=== PATIENT | female | born 1935 | race Caucasian/White ===

== ENCOUNTER 2017-05-17 10:44 | Emergency (ER) | payer OTHER ==
--- NOTE | 2017-05-17 11:56 | EDPHY ---
H & P Stated Complaint: Back pain Source: Patient, Family - Personal History Current Tetanus/Diphtheria Vaccine: Yes - Medical/Surgical History Hx Asthma: No Hx Chronic Respiratory Disease: No Hx Diabetes: No Hx Cardiac Disease: No Hx Renal Disease: No Hx Cirrhosis: No Hx Alcoholism: No Hx HIV/AIDS: No Hx Splenectomy or Spleen Trauma: No - Social History Smoking Status: Never smoked Time Seen by Provider: 05/17/17 11:19 HPI/ROS: CHIEF COMPLAINT: Lower back pain hip pain HISTORY OF PRESENT ILLNESS: This is an 82-year-old female presenting to the emergency department via EMS. Patient states she has a history of Parkinson's disease which makes her somewhat unstable to walk, yesterday morning around 10 o 'clock she went to grab the railing missed a step fell back 1 step landing on her butt. Patient states she has somewhat been able to use her walker yesterday but is having increased pain today in her lower back and bilateral hips. Denies any LOC, denies hitting her head. REVIEW OF SYSTEMS: Constitutional: No fever, no chills. Decreased in ADLs Eyes: No discharge. No blurred vision ENT: No sore throat. Cardiovascular: No chest pain, no palpitations. Respiratory: No cough, no shortness of breath. Gastrointestinal: No abdominal pain, no vomiting. Genitourinary: No hematuria. Musculoskeletal: Lower back pain. Hip pain Skin: No rashes. Neurological: No headache. (Lacy Emerson) - Physical Exam Exam: General Appearance: Alert, no distress. HEENT: Normocephalic atraumatic Pupils equal and round no pallor or injection. Mucous membranes moist. Respiratory: There are no retractions, lungs are clear to auscultation. Cardiovascular: Regular rate and rhythm. Gastrointestinal: Abdomen is soft and nontender, no masses, bowel sounds normal. Neurological: No focal deficits. Answering questions appropriately Tremulous due to Parkinson's disease Skin: Warm and dry, no rashes. Musculoskeletal: Vertebral cervical-thoracic spine nontender on palpation. Lumbar spine sacral spine vertebral tenderness on palpation no crepitus noted. Left hip tenderness on palpation Extremities: symmetrical, full range of motion. No rotation of lower extremities. No obvious deformities or injuries Psychiatric: Patient is oriented X 3, there is no agitation. (Lacy Emerson) Constitutional: Initial Vital Signs Temperature (C) 36.8 C 05/17/17 11:04 Heart Rate 78 05/17/17 11:04 Respiratory Rate 18 05/17/17 11:04 Blood Pressure 124/68 H 05/17/17 11:04 O2 Sat (%) 88 L 05/17/17 11:04 O2 Delivery Mode Nasal Cannula O2 (L/minute) 2 Allergies/Adverse Reactions: Penicillins Allergy (Intermediate, Verified 09/23/12 09:32) Hives Home Medications: Medication Instructions Recorded Carbidopa/Levodopa 10/100Mg 0.5 tab PO TID 09/23/12 [Sinemet 10/100 MG (RX)] Cholecalciferol Vit D3 [Vitamin D3 5,000 units PO DAILY 05/18/17 (*)] Levothyroxine [Synthroid 25 mcg 25 mcg PO DAILY06 05/18/17 (*)] Medical Decision Making ED Course/Re-evaluation: Discussed ED plan of care: X-ray lumbar sacral pelvis 1300: X-rays negative for any acute fractures. Discussed results with patient and family at bedside. 1305: Discussed discharge instructions with patient, recommend using a walker due to her instability of the Parkinson's disease. Also spoke with case management to see if we can involve home health care for patient. Patient discharged home with family (Lacy Emerson) I did not see this patient while she was in the emergency department. However her care was discussed with the nurse practitioner while the patient was in the department. I agree with treatment plan and management (Carlos Sal) Differential Diagnosis: Other differential diagnosis considered but not limited to lumbar vertebral fracture, sacral fracture, hip dislocation (Lacy Emerson) Departure - Departure Disposition: Home, Routine, Self-Care Clinical Impression: Pain in lower back Condition: Good Instructions: Low Back Strain (ED), Musculoskeletal Pain (ED) Additional Instructions: 1. Decrease strenuous activity 2. Recommend using walker versus cane due to the instability from Parkinson's disease 3. Follow up with your primary care provider next week as needed 4. If at any point time you have increased pain, unable to walk, bowel or bladder incontinence return to the emergency department Home Health will contact you to schedule your home visits. Your first visit will be tomorrow, 05/18/17. If you do not hear from them today, call them tomorrow morning at You have been given a prescription for a walker. Home health will assist you with the process of obtaining a walker OR you may purchase a walker for about $ 100 at [facility] and [place] Referrals: Patient,NotPresent [Unknown] - As per Instructions [facility] [Clinic] - As per Instructions
[2017-05-17 12:50] VITALS: PULSE 82; RESP 16; TEMP 98.1; O2SAT 94
[2017-05-17] MEDS ORDERED: HYDROCODONE/APAP 5/325 TAB ONE (13:19)
[2017-05-17 14:32] VITALS: BP 118/78
== END 2017-05-17 14:32 | disposition home or self-care (01) ==
LOC: EDUNIT#
DX: S39.92XA Unspecified injury of lower back, initial encounter (principal); W10.9XXA Fall (on) (from) unspecified stairs and steps, initial encounter

== ENCOUNTER 2017-05-18 14:39 | Inpatient (IN) | payer OTHER ==
[2017-05-18] MEDS ORDERED: OXYCODONE/APAP 5/325 TAB ONE (14:54)
[2017-05-18] MEDS ORDERED: IBUPROFEN 600 MG TAB PO ONE ×2 (14:55→15:07)
[2017-05-18] MEDS ORDERED: LIDOCAINE 5% 1 EA PATCH TD ONE (14:55)
--- NOTE | 2017-05-18 15:02 | EDPHY ---
H & P Stated Complaint: Here yesterday, PT says pain not in control. Source: Patient, EMS, Old records - Personal History Current Tetanus/Diphtheria Vaccine: Yes Current Tetanus Diphtheria and Acellular Pertussis (TDAP): Yes - Medical/Surgical History Hx Asthma: No Hx Chronic Respiratory Disease: No Hx Diabetes: No Hx Cardiac Disease: No Hx Renal Disease: No Hx Cirrhosis: No Hx Alcoholism: No Hx HIV/AIDS: No Hx Splenectomy or Spleen Trauma: No Other PMH: parkinsons - Social History Smoking Status: Never smoked Time Seen by Provider: 05/18/17 14:41 HPI/ROS: CHIEF COMPLAINT: Generalized weakness HISTORY OF PRESENT ILLNESS: This is an 82-year-old female presenting to the emergency department via EMS. Patient was seen here yesterday in the emergency department staff for acute lower back/hip pain status post fall on to 05/16/17. Case management had set up home health evaluation and outpatient PT for today, physical therapy stated patient was unable to do physical therapy due to her increased pain and Parkinson's disease was told she should be coming in to the emergency department for pain control. Patient states she would like to be admitted for pain control and physical therapy. Patient denies any new injuries has been taking 1 Norco5/325 every 6 hours without resolved. Patient states she has been ambulatory at home with the assist of friends and cane REVIEW OF SYSTEMS: Constitutional: No fever, no chills. Decreased p.o. intake Eyes: No discharge. No blurred vision ENT: No sore throat. Cardiovascular: No chest pain, no palpitations. Respiratory: No cough, no shortness of breath. Gastrointestinal: No abdominal pain, no vomiting. Genitourinary: No hematuria. Musculoskeletal: Lower back pain. Skin: No rashes. Neurological: No headache. (Lacy Emerson) - Physical Exam Exam: General Appearance: Alert, no distress. HEENT: Pupils equal and round no pallor or injection. Mucous membranes moist. Respiratory: There are no retractions, lungs are clear to auscultation. Cardiovascular: Regular rate and rhythm. Gastrointestinal: Abdomen is soft and nontender, no masses, bowel sounds normal. Neurological: No facial droop AAO x3 Skin: Warm and dry, no rashes. Musculoskeletal: Neck is supple nontender. Extremities: symmetrical, full range of motion tremulous due to a Parkinson's Psychiatric: Patient is oriented X 3, there is no agitation. (Lacy Emerson) Constitutional: Initial Vital Signs Temperature (C) 37 C 05/18/17 14:45 Heart Rate 89 05/18/17 14:45 Respiratory Rate 18 05/18/17 14:45 Blood Pressure 109/76 05/18/17 14:45 O2 Sat (%) 91 L 05/18/17 14:45 O2 Delivery Mode Room Air Allergies/Adverse Reactions: Penicillins Allergy (Intermediate, Verified 09/23/12 09:32) Hives Home Medications: Medication Instructions Recorded Carbidopa/Levodopa 10/100Mg 0.5 tab PO TID 09/23/12 [Sinemet 10/100 MG (RX)] Cholecalciferol Vit D3 [Vitamin D3 5,000 units PO DAILY 05/18/17 (*)] Levothyroxine [Synthroid 25 mcg 25 mcg PO DAILY06 05/18/17 (*)] Medical Decision Making ED Course/Re-evaluation: Discussed patient with Meron MURDOCKwildlife management professor evaluate for possible skilled facility for rehab. Reviewed old medical records 1530: Spoke with Lu Aguilar with home health. She stated this afternoon went to evaluate patient for physical therapy patient was lying in bed needed 2 people assist to sit her up, then patient was complaining of increased pain there was no family support in the home patient does live with a roommate. They were concerned patient was not safe at home needs to be possibly admitted for pain control and physical therapy or admitted to SNF for rehab. 1640: Patient admitted to hospitalist Dr. Carmichael. Case management will also be involved to possibly get patient into a halfway facility for rehab ( Lacy Emerson) Differential Diagnosis: Other differential diagnosis considered but not limited to electrolyte imbalance , AMS, and UTI (Lacy Emerson) Other Provider: The patient was evaluated and managed by the Physician Head Trimmer/ Nurse Practitioner. I discussed the patient's presentation and course with the midlevel provider with them and agree with the evaluation. My co-signature indicates that I have reviewed this chart and I agree with the findings and plan of care as documented. I am the secondary supervising physician. (Caridad Llamas) - Data Points Laboratory Results: Laboratory Results 05/18/17 15:20 05/18/17 15:20 Medications Given: Discontinued Medications Ibuprofen (Motrin) 600 mg PO EDNOW ONE Stop: 05/18/17 15:08 Last Admin: 05/18/17 15:16 Dose: 600 mg Oxycodone/Acetaminophen (Percocet 5/325) 1 tab PO EDNOW ONE Stop: 05/18/17 15:08 Last Admin: 05/18/17 15:16 Dose: 1 tab Departure - Departure Disposition: [facility] Clinical Impression: Inadequate pain control, Generalized weakness Condition: Good
[2017-05-18] MEDS ORDERED: OXYCODONE/APAP 5/325 TAB PO ONE (15:07)
[2017-05-18] MEDS: LIDOCAINE 5% 1 EA PATCH TD SCH (15:16)
[2017-05-18 15:49] LABS: % IMMATURE GRANULYOCYTES 0.5 % (0.0-1.1); ABSOLUTE IMMATURE GRANULOCYTES 0.06 10^3/uL (0.00-0.10); ADD DIFF? NO; ADD MORPH? NO; ADD SCAN? NO; ATYPICAL LYMPHOCYTE FLAG 0 (0-99); FRAGMENT RBC FLAG 0 (0-99); HEMATOCRIT 41.3 % (38.0-47.0); HEMOGLOBIN 14.2 g/dL (12.6-16.3); LEFT SHIFT FLG 0 (0-99); LIPEMIA HEMOLYSIS FLAG 90 (0-99); MEAN CELL HEMOGLOBIN 30.9 pg (27.9-34.1); MEAN CELL HEMOGLOBIN CONCENTR. 34.4 g/dL (32.4-36.7); MEAN PLATELET VOLUME 10.8 fL (8.7-11.7); PLATELET CLUMPS FLAG 20 (0-99); PLATELET COUNT 179 10^3/uL (150-400); RED BLOOD CELL COUNT 4.59 10^6/uL (4.18-5.33); RED CELL DISTRIBUTION WIDTH 12.7 % (11.5-15.2)
[2017-05-18 15:56] LABS: ANION GAP 9 mEq/L (8-16); CALCIUM 9.1 mg/dL (8.5-10.4); CARBON DIOXIDE 24 mEq/l (22-31); CHLORIDE 103 mEq/L (97-110); CREATININE 0.7 mg/dL (0.6-1.0); GLOMERULAR FILTRATION RATE > 60; GLUCOSE 107 mg/dL (70-100); POTASSIUM 3.6 mEq/L (3.5-5.2); SODIUM 136 mEq/L (134-144)
[2017-05-18] MEDS ORDERED: ONDANSETRON DISINTEGRATING 4 MG TAB PO PRN (17:39)
[2017-05-18] MEDS ORDERED: ONDANSETRON 4 MG/2 ML VIAL IVP PRN (17:39)
[2017-05-18 17:54] LABS: COLOR YELLOW; LEUKOCYTE ESTERASE,URINE NEGATIVE (NEGATIVE); NITRITE,URINE NEGATIVE (NEGATIVE)
--- NOTE | 2017-05-18 18:11 | PDGENHP ---
History and Physical History and Physical: HISTORY AND PHYSICAL CC: Back pain after fall yesterday HISTORY: This patient came to the emergency room yesterday after she had fallen. She has chronic gait instability from Parkinson's and was using a walker at home though got up with out her walker yesterday and reached for railing and missed and fell backwards landing on her buttock. She had pain in her low back with no injury or symptoms to other body parts. She was seen here yesterday and had x-rays of the pelvis lumbar spine and coccyx and did not have any fractures. She had gotten up and walked with her walker and was discharged back to her house. However as she was seen by Physical therapy today it was clear that she was not really transferring and ambulating safely at least in part due to her ongoing pain from this fall. She therefore was transferred back to the emergency room for further evaluation. She has had no of recurrent falls no new pain no new injuries no other new symptoms of illness of any kind. Her Parkinson's disease symptoms are stable chronic tremor and gait instability as well as some chronic urinary frequency. ROS: A comprehensive 10 system review revealed no other significant findings PAST MEDICAL HISTORY: Parkinson's disease Hypothyroidism FAMILY MEDICAL HISTORY: She is not aware of any significant pertinent family medical history SOCIAL HISTORY: Lives in a private house with a friend No tobacco drug or alcohol use MEDICATIONS: The patients list has been reconciled by our clinical pharmacist in the EMR. I have reviewed the list and ordered appropriate medicines. PHYSICAL EXAMINATION: Vital Signs: Stable without fever Examination: General: alert, oriented, good mentation, relaxed; a typical parkinsonian tremor of both hands is present. Her speech is hypophonic which is chronic for her. She has somewhat diminished facial expression, normal speech/language, normal video effects editor, no focal weakness Skin: warm, dry, good color, no rash HEENT: normal Neck: no mass or jvd Resps: relaxed Lungs: clear breath sounds Heart: regular, no murmur Abdomen: soft, nondistended, nontender, +BS, no mass Upper Extremities: normal Lower Extremities: no edema, warm No Bleeding or bruising IV site: looks normal LABORATORY DATA: Review of yesterday's blood test laboratory data reveals no concerning abnormalities RADIOLOGY STUDIES: I reviewed x-rays of the lumbar spine sacrum coccyx and pelvis from yesterday. There are no notable fractures of concern. She has some degenerative spine disease ASSESSMENT: -ongoing lumbar and buttock pain after fall yesterday: No sign of bony injury or joint injury -chronic gait instability from Parkinson's disease is now made worse by the pain from yesterday's injury such that she is unsafe to be ambulatory without assistance at home PLANS: She will need to come into the hospital is to be safe until we can either get her pain and mobility improved for safe transfers and ambulation, or she will need to go to fdc facility for ongoing rehabilitation there I have reviewed the patient's case in detail with Lacy RINALDI of the ER I have reviewed the patient's past medical records as part of this assessment, including yesterday's ER records and x-ray images
[2017-05-18] MEDS: CARBIDOPA/LEVODOPA 10MG/100MG 1 TAB PO SCH (20:18)
[2017-05-18] MEDS: PATCH REMOVAL 1 EA PATCH TD SCH (20:19)
[2017-05-19] MEDS: IBUPROFEN 200 MG TAB PO PRN ×3 (02:39→14:23)
[2017-05-19] MEDS: ACETAMINOPHEN 325 MG TAB PO PRN (05:01)
[2017-05-19] MEDS: LEVOTHYROXINE 25 MCG TAB PO SCH (05:29)
[2017-05-19] MEDS: LIDOCAINE 5% 1 EA PATCH TD SCH (08:19)
[2017-05-19] MEDS: CHOLECALCIFEROL VIT D3 2,000 UNITS TAB/CAP PO SCH (08:22)
[2017-05-19] MEDS: CARBIDOPA/LEVODOPA 10MG/100MG 1 TAB PO SCH ×3 (08:22→22:09)
[2017-05-19] MEDS: ENOXAPARIN 40 MG/0.4 ML SYR SC SCH (08:28)
--- NOTE | 2017-05-19 14:15 | HOSPPROG ---
Hospitalist Progress Note Assessment/Plan: * Severe back pain s/p fall -L1 compression fracture on Xray - ? chronic -check MRI L-spine -severe pelvic pain - check CT pelvis * Parkinson's -continue Sinemet Subjective: Severe pain in lower back and whole pelvis Objective: Vital Signs Temp Pulse Resp BP Pulse Ox 36.6 C 79 16 133/73 H 90 L 05/19/17 08:00 05/19/17 08:00 05/19/17 08:00 05/19/17 08:00 05/19/17 08:00 05/18/17 05/19/17 05/20/17 05:59 05:59 05:59 Intake Total 200 Balance 200 old chart reviewed - Xrays of Lspine and pelvis done during previous admission negative for acute. L1 compression fracture that was suspected to be old Laboratory Tests 05/18/17 15:20 WBC 11.80 H Hct 41.3 Plt Count 179 Neut % (Auto) 82.2 H Lymph % (Auto) 10.8 L - Physical Exam Constitutional: no apparent distress, appears nourished, not in pain Cardiovascular: regular rate and rhythym, no murmur, rub, or gallop Respiratory: no respiratory distress, no rales or rhonchi, clear to auscultation Gastrointestinal: normoactive bowel sounds, soft, non-tender abdomen, no palpable masses Skin: no rashes or abrasions, no fluctuance, no induration Neurologic: AAOx3, sensation intact bilaterally Psychiatric: interacting appropriately, not anxious, not encephalopathic, thought process linear ICD10 Worksheet Patient Problems: Problems Problem Status Onset Generalized weakness Acute Inadequate pain control Acute
[2017-05-19] MEDS: oxyCODONE IR 5 MG TAB PO PRN ×2 (16:11→20:30)
[2017-05-19] MEDS: PATCH REMOVAL 1 EA PATCH TD SCH (22:10)
[2017-05-20] MEDS: oxyCODONE IR 5 MG TAB PO PRN ×3 (05:12→20:13)
[2017-05-20] MEDS: LEVOTHYROXINE 25 MCG TAB PO SCH (05:12)
[2017-05-20] MEDS: CHOLECALCIFEROL VIT D3 2,000 UNITS TAB/CAP PO SCH (08:21)
[2017-05-20] MEDS: CARBIDOPA/LEVODOPA 10MG/100MG 1 TAB PO SCH ×3 (08:23→22:54)
[2017-05-20] MEDS: LIDOCAINE 5% 1 EA PATCH TD SCH (08:24)
[2017-05-20] MEDS: ENOXAPARIN 40 MG/0.4 ML SYR SC SCH (08:25)
--- NOTE | 2017-05-20 13:59 | HOSPPROG ---
Hospitalist Progress Note Assessment/Plan: * Acute L1 compression fracture -retropulsion but no cord compromise -neurosurgery consulted - Dr. Nanny Camilla esquivel -pain control difficult - consider kyphoplasty/vertebroplasty * Parkinson's -continue Sinemet * Hypoxia - suspect due to narcotics Subjective: Pain is severe. Objective: Vital Signs Temp Pulse Resp BP Pulse Ox 36.6 C 79 14 116/67 96 05/20/17 08:00 05/20/17 08:00 05/20/17 08:00 05/20/17 08:00 05/20/17 08:00 05/19/17 05/20/17 05/21/17 05:59 05:59 05:59 Intake Total 200 300 Balance 200 300 recheck CBC,7 in am MRI L-spine - acute 50% L1 fracture with retropulsion but no cord compromise case d/w Neurosurgery Dr. Nanny Ethan esquivel and they will consult this afternoon. - Physical Exam Constitutional: no apparent distress, appears nourished, not in pain Cardiovascular: regular rate and rhythym, no murmur, rub, or gallop Respiratory: no respiratory distress, no rales or rhonchi, clear to auscultation Gastrointestinal: normoactive bowel sounds, soft, non-tender abdomen, no palpable masses Skin: no rashes or abrasions, no fluctuance, no induration Neurologic: AAOx3, sensation intact bilaterally, other (tremor is more significant than yesterday) Psychiatric: interacting appropriately, not anxious, not encephalopathic, thought process linear ICD10 Worksheet Patient Problems: Problems Problem Status Onset Generalized weakness Acute Inadequate pain control Acute
--- NOTE | 2017-05-20 16:36 | GCON ---
[f rep st] CONSULTATION HOSPITALIST MEDICINE CONSULT NOTE REASON FOR CONSULT: L1 compression fracture. HISTORY OF PRESENT ILLNESS: The patient is a very pleasant 82-year-old female with Parkinson's disease and hypothyroidism. Due to her Parkinson's, she does have some gait issues and was using a walker at home. She was reaching for the railing and missed her walker and fell backwards, landing on her buttocks. She was able to get back up on her own. She was seen by Physical Therapy on the day of admission, and it was evident that she was not transferring or ambulating safely partly due to her pain, so she was taken to the [facility] Emergency Room for evaluation. A plain film was done at that time demonstrating an L1 compression fracture, and she was admitted to the hospitalist service for pain management. She subsequently had an MRI of the lumbar spine demonstrating some retropulsion at L1, but no significant stenosis or compression. There is some subtle evidence of STIR signal in the L1, L2 and L3 vertebra. To me, she describes the back pain being in the upper buttock region, in her hips and wrapping around to the front of her pelvis. Sometimes she has pain up in the lower rib cage. She has no numbness, tingling or weakness in her legs. She has tried to get up and when she does so it hurts worse. Therefore, I was consulted for recommendations. PAST MEDICAL HISTORY: Per HPI. PAST SURGICAL HISTORY: Per HPI. ALLERGIES: To penicillins. MEDICATIONS: Tylenol, Sinemet, vitamin D, Lovenox, Motrin, Synthroid, Lidoderm patch, Zofran, oxycodone immediate release. FAMILY HISTORY: No history of spine fracture. Somewhat noncontributory in this traumatic setting. SOCIAL HISTORY: Lives in a private home with her friend. No tobacco, alcohol or drug abuse. REVIEW OF SYSTEMS: A 10-point review was performed and is negative, other than stated in the HPI. PHYSICAL EXAMINATION: VITALS: Temperature 36.6, blood pressure 116/67, heart rate 79, respiratory rate 14, saturating 96% on 2 L nasal cannula. GENERAL: The patient is resting comfortably in bed. NEUROPSYCHIATRIC: She opens her eyes to my voice command. She is conversant. She has a tremor consistent with her Parkinson's disease. She is nonfocal. She has normal cranial nerves. Normal strength volitionally in all muscle groups. She has normal sensory exam to light touch and pinprick. She has normal reflexes. She has no cerebellar signs. Gait is deferred, given her pain with ambulation. LABS: White cells 11.8, hemoglobin 14.2, platelet 179. She has a left shift with 82% neutrophils and absolute neutrophil count of 9.7, which is also elevated stated was 136, potassium 3.6, BUN creatinine 16.7, glucose 107 UA negative. IMAGING: I reviewed the patient's CT of the abdomen and pelvis from 2012, her lumbar films from admission and her MRI, and agree with L1 compression fracture with possible STIR signal indicating an acute fracture at L1, less likely at L2 or L3. IMPRESSION: The patient is an 82-year-old female with Parkinson's disease and gait difficulties due to this condition, who fell at home on her bottom and has since had pain in her low back, upper buttocks, hips and around to the front of her pelvis, and pain just below her rib cage as well, with imaging suggesting an acute L1 compression fracture. She is neurologically intact. PLAN: At this point in time, she is undergoing medical pain management, and we have asked for a Totz brace to help her with stability and pain control when she attempts to mobilize. We did discuss the utility of a kyphoplasty when basic pain measures are insufficient, but at this point in time, she would prefer to hold off on this for the time being. Thank you for this consult. We are following along. /[id number]/MODL MTDD
[2017-05-20] MEDS: ACETAMINOPHEN 325 MG TAB PO PRN (20:13)
[2017-05-20] MEDS: PATCH REMOVAL 1 EA PATCH TD SCH (20:17)
[2017-05-21] MEDS: oxyCODONE IR 5 MG TAB PO PRN ×4 (02:25→19:49)
[2017-05-21] MEDS: ACETAMINOPHEN 325 MG TAB PO PRN ×3 (03:02→16:36)
[2017-05-21] MEDS: LEVOTHYROXINE 25 MCG TAB PO SCH (05:09)
[2017-05-21 05:11] LABS: % IMMATURE GRANULYOCYTES 0.4 % (0.0-1.1); ABSOLUTE IMMATURE GRANULOCYTES 0.03 10^3/uL (0.00-0.10); ADD DIFF? NO; ADD MORPH? NO; ADD SCAN? NO; ATYPICAL LYMPHOCYTE FLAG 10 (0-99); FRAGMENT RBC FLAG 0 (0-99); HEMATOCRIT 39.5 % (38.0-47.0); HEMOGLOBIN 13.6 g/dL (12.6-16.3); LEFT SHIFT FLG 0 (0-99); LIPEMIA HEMOLYSIS FLAG 90 (0-99); MEAN CELL HEMOGLOBIN 30.4 pg (27.9-34.1); MEAN CELL HEMOGLOBIN CONCENTR. 34.4 g/dL (32.4-36.7); MEAN CELL VOLUME 88.4 fL (81.5-99.8); MEAN PLATELET VOLUME 10.2 fL (8.7-11.7); PLATELET CLUMPS FLAG 0 (0-99); PLATELET COUNT 181 10^3/uL (150-400); RED BLOOD CELL COUNT 4.47 10^6/uL (4.18-5.33); RED CELL DISTRIBUTION WIDTH 12.3 % (11.5-15.2)
[2017-05-21 05:25] LABS: ANION GAP 7 mEq/L (8-16); CALCIUM 9.4 mg/dL (8.5-10.4); CARBON DIOXIDE 26 mEq/l (22-31); CHLORIDE 104 mEq/L (97-110); CREATININE 0.8 mg/dL (0.6-1.0); GLOMERULAR FILTRATION RATE > 60; GLUCOSE 97 mg/dL (70-100); POTASSIUM 3.7 mEq/L (3.5-5.2); SODIUM 137 mEq/L (134-144)
--- NOTE | 2017-05-21 08:01 | NEUSURGPN ---
Assessment/Plan: 82 y/o female with L1 compression fx. -Santiago brace pending -Optimize pain management -Will obtain standing xrays once brace arrives. -Please notify NS with any change in neuro/motor exam Subjective: back pain, denies any leg pain, numbness, tingling Objective: Baseline tremor. 5/5 and equal in BUE and BLE. - Physician Discussed Patient with : Jennifer Neurosurgery Physical Exam - Vitals, I&O, Labs I and O 05/20/17 05/21/17 05/22/17 05:59 05:59 05:59 Intake Total 300 550 Output Total 125 Balance 300 425 Intake: Oral (ml) 300 550 Output: Urine (ml) 125 Bedside Commode 125 Other: Intake Quantity Yes Sufficient Number of Voids Bedside Commode 2 2 Vital Signs Temp Pulse Resp BP Pulse Ox 36.7 C 85 14 142/82 H 90 L 05/20/17 22:53 05/20/17 22:53 05/20/17 22:53 05/20/17 22:53 05/20/17 22:53 Laboratory Results 05/21/17 04:55 05/21/17 04:55 ICD10 Worksheet Patient Problems: Problems Problem Status Onset Generalized weakness Acute Inadequate pain control Acute
[2017-05-21] MEDS: CHOLECALCIFEROL VIT D3 2,000 UNITS TAB/CAP PO SCH (08:39)
[2017-05-21] MEDS: LIDOCAINE 5% 1 EA PATCH TD SCH (08:40)
[2017-05-21] MEDS: CARBIDOPA/LEVODOPA 10MG/100MG 1 TAB PO SCH ×3 (08:40→22:11)
[2017-05-21] MEDS: ENOXAPARIN 40 MG/0.4 ML SYR SC SCH (08:45)
--- NOTE | 2017-05-21 17:14 | HOSPPROG ---
Hospitalist Progress Note Assessment/Plan: * Acute L1 compression fracture -retropulsion but no cord compromise -Jewitt brace -pain control difficult - patient declines kyphoplasty/vertebroplasty * Parkinson's -continue Sinemet Subjective: Pain control still difficult Objective: Vital Signs Temp Pulse Resp BP Pulse Ox 36.7 C 75 18 145/87 H 94 05/21/17 16:00 05/21/17 16:00 05/21/17 16:00 05/21/17 16:00 05/21/17 16:00 Laboratory Results 05/21/17 04:55 05/21/17 04:55 05/20/17 05/21/17 05/22/17 05:59 05:59 05:59 Intake Total 300 550 Output Total 125 Balance 300 425 - Physical Exam Constitutional: no apparent distress, appears nourished, not in pain Cardiovascular: regular rate and rhythym, no murmur, rub, or gallop Respiratory: no respiratory distress, no rales or rhonchi, clear to auscultation Gastrointestinal: normoactive bowel sounds, soft, non-tender abdomen, no palpable masses Skin: no rashes or abrasions, no fluctuance, no induration Neurologic: AAOx3, sensation intact bilaterally Psychiatric: interacting appropriately, not anxious, not encephalopathic, thought process linear ICD10 Worksheet Patient Problems: Problems Problem Status Onset Generalized weakness Acute Inadequate pain control Acute
[2017-05-21] MEDS: CALCITONIN 200 UNITS/SPRAY INH NS SCH (18:38)
[2017-05-22] MEDS: oxyCODONE IR 5 MG TAB PO PRN ×4 (01:17→20:24)
[2017-05-22] MEDS: ACETAMINOPHEN 325 MG TAB PO PRN ×3 (01:17→20:43)
[2017-05-22] MEDS: LEVOTHYROXINE 25 MCG TAB PO SCH (06:18)
--- NOTE | 2017-05-22 08:57 | NEUSURGPN ---
Assessment/Plan: 82 y/o female with L1 compression fx. -Santiago brace in room- has been up in chair but not walking with brace yet. -Optimize pain management -Will obtain standing xrays in brace when able -Discussed option of kyphoplasty again with patient if she is still not ambulatory due to pain in a few days. Patient would like to wait and see still how she does. Feels pain is slightly better today -Please notify NS with any change in neuro/motor exam or if patient decides she would like kypho -Discussed with Dr. Rodriguez Subjective: back pain still severe with movement but slightly better than yesterday she states. She denies any leg pain, numbness, tingling. has baseline Parkinson's and neuropathy but nothing new. Objective: NAD, VSS Baseline tremor from Parkinson's 03/30 and equal in BUE and BLE. Sensation intact to lt touch - Physician Discussed Patient with Dr.: Rodriguez Neurosurgery Physical Exam - Vitals, I&O, Labs I and O 05/21/17 05/22/17 05/23/17 05:59 05:59 05:59 Intake Total 550 450 Output Total 125 Balance 425 450 Intake: Oral (ml) 550 450 Output: Urine (ml) 125 Bedside Commode 125 Other: Intake Quantity Yes Sufficient Number of Voids Bedside Commode 2 3 Vital Signs Temp Pulse Resp BP Pulse Ox 36.6 C 80 16 101/61 93 05/22/17 07:34 05/22/17 07:34 05/22/17 07:34 05/22/17 07:34 05/22/17 07:34 Laboratory Results 05/21/17 04:55 05/21/17 04:55 ICD10 Worksheet Patient Problems: Problems Problem Status Onset Generalized weakness Acute Inadequate pain control Acute
[2017-05-22] MEDS: CALCITONIN 200 UNITS/SPRAY INH NS SCH (10:34)
[2017-05-22] MEDS: CARBIDOPA/LEVODOPA 10MG/100MG 1 TAB PO SCH ×3 (10:34→20:43)
[2017-05-22] MEDS: CHOLECALCIFEROL VIT D3 2,000 UNITS TAB/CAP PO SCH (10:35)
[2017-05-22] MEDS: ENOXAPARIN 40 MG/0.4 ML SYR SC SCH (10:35)
[2017-05-22] MEDS: LIDOCAINE 5% 1 EA PATCH TD SCH (14:13)
--- NOTE | 2017-05-22 15:41 | HOSPPROG ---
Hospitalist Progress Note Assessment/Plan: * Acute L1 compression fracture -retropulsion but no cord compromise -[place] brace -recheck Xray up in brace when she is able -better pain control and mobilization today -she continues to insist no kyphoplasty * Parkinson's -continue Sinemet Subjective: Has been unable to perform f/u xray, although pain control is better today. Got up with therapy Objective: Vital Signs Temp Pulse Resp BP Pulse Ox 36.4 C 91 16 130/71 H 90 L 05/22/17 15:16 05/22/17 15:16 05/22/17 15:16 05/22/17 15:16 05/22/17 15:16 Laboratory Results 05/21/17 04:55 05/21/17 04:55 05/21/17 05/22/17 05/23/17 05:59 05:59 05:59 Intake Total 550 450 Output Total 125 Balance 425 450 - Physical Exam Constitutional: no apparent distress, appears nourished, not in pain Cardiovascular: regular rate and rhythym, no murmur, rub, or gallop Respiratory: no respiratory distress, no rales or rhonchi, clear to auscultation Skin: no rashes or abrasions, no fluctuance, no induration Neurologic: AAOx3, sensation intact bilaterally Psychiatric: interacting appropriately, not anxious, not encephalopathic, thought process linear ICD10 Worksheet Patient Problems: Problems Problem Status Onset Generalized weakness Acute Inadequate pain control Acute
[2017-05-23] MEDS: oxyCODONE IR 5 MG TAB PO PRN ×4 (00:38→20:08)
[2017-05-23] MEDS: PATCH REMOVAL 1 EA PATCH TD SCH ×2 (01:07→20:15)
[2017-05-23] MEDS: LEVOTHYROXINE 25 MCG TAB PO SCH (04:39)
[2017-05-23] MEDS: ACETAMINOPHEN 325 MG TAB PO PRN (05:52)
--- NOTE | 2017-05-23 07:49 | NEUSURGPN ---
Assessment/Plan: Assessment: 82 y/o female with L1 compression fx. Plan: -[place] brace in room- has been up in chair but not walking with brace yet. -Optimize pain management -Will obtain standing xrays in brace when able -Pt states that she does not want surgery and believes she is turning the corner and getting better and "I need one more day" -Discussed option of kyphoplasty again with patient if she is still not ambulatory due to pain in a few days. Patient would like to wait and see still how she does. Feels pain is slightly better day to day -Please notify NS with any change in neuro/motor exam or if patient decides she would like kypho -Discussed with Dr. Rodriguez Subjective: Awake and alert. NAD. Eating/drinking and voiding. No f/c/n/v/d. Objective: NAD, VSS Baseline tremor from Parkinson's 03/30 and equal in BUE and BLE. Sensation intact to lt touch Neuro Check Frequency: per routine - Physician Discussed Patient with : Jennifer Neurosurgery Physical Exam - Vitals, I&O, Labs I and O 05/22/17 05/23/17 05/24/17 05:59 05:59 05:59 Intake Total 450 250 Balance 450 250 Intake: Oral (ml) 450 250 Other: Intake Quantity Yes Yes Sufficient Number of Voids Bedside Commode 3 2 Vital Signs Temp Pulse Resp BP Pulse Ox 36.6 C 84 16 116/60 94 05/23/17 07:35 05/23/17 07:35 05/23/17 07:35 05/23/17 07:35 05/23/17 07:35 Laboratory Results 05/21/17 04:55 05/21/17 04:55 ICD10 Worksheet Patient Problems: Problems Problem Status Onset Generalized weakness Acute Inadequate pain control Acute
[2017-05-23] MEDS: CHOLECALCIFEROL VIT D3 2,000 UNITS TAB/CAP PO SCH (08:32)
[2017-05-23] MEDS: CARBIDOPA/LEVODOPA 10MG/100MG 1 TAB PO SCH ×3 (08:33→22:16)
[2017-05-23] MEDS: LIDOCAINE 5% 1 EA PATCH TD SCH (08:34)
[2017-05-23] MEDS: ENOXAPARIN 40 MG/0.4 ML SYR SC SCH (08:34)
[2017-05-23] MEDS: CALCITONIN 200 UNITS/SPRAY INH NS SCH (08:34)
[2017-05-23] MEDS: IBUPROFEN 200 MG TAB PO PRN (08:53)
--- NOTE | 2017-05-23 15:33 | HOSPPROG ---
Hospitalist Progress Note Assessment/Plan: * Acute L1 compression fracture -retropulsion but no cord compromise -Abdiaziz brace -check follow-up lumbar Xray in brace -still with poor pain control -d/w Rosaliomarkus Ace - patient now agreeable to kyphoplasty * Parkinson's -continue Sinemet Subjective: pain 07/05. narcs make her too sedated Objective: Vital Signs Temp Pulse Resp BP Pulse Ox 36.7 C 84 16 100/59 L 95 05/23/17 15:12 05/23/17 15:12 05/23/17 15:12 05/23/17 15:12 05/23/17 15:12 Laboratory Results 05/21/17 04:55 05/21/17 04:55 05/22/17 05/23/17 05/24/17 05:59 05:59 05:59 Intake Total 450 250 Balance 450 250 ICD10 Worksheet Patient Problems: Problems Problem Status Onset Generalized weakness Acute Inadequate pain control Acute
[2017-05-24] MEDS: oxyCODONE IR 5 MG TAB PO PRN (00:08)
[2017-05-24] MEDS: LEVOTHYROXINE 25 MCG TAB PO SCH (04:59)
--- NOTE | 2017-05-24 07:45 | NEUSURGPN ---
Assessment/Plan: Assessment: 82 y/o female with L1 compression fx. Plan: -[place] brace in room- has been up in chair but not walking with brace yet- didnt tolerate so scheduled with IR today for a kyphoplasty of L1 -NPO -pt is in significant pain and is NPO so will start an IV and order MS for pain control -Optimize pain management -Pt states that she does want some relief with a kyphoplasty-procedure discussed in detail -call with any questions or concerns -pt understands and agrees -Please notify NS with any change in neuro/motor exam -Discussed with Dr. Rodriguez Subjective: Pt with continued back pain. No reyes/neck/chest/abd or gu complaints. No f/c/n/v /d. Objective: NAD, VSS Baseline tremor from Parkinson's 03/30 and equal in BUE and BLE-global poor effort due to pain in back Sensation intact to lt touch Neuro Check Frequency: per routine Urinary Catheter in Place: No - Physician Discussed Patient with Dr.: Rodriguez Neurosurgery Physical Exam - Vitals, I&O, Labs I and O 05/23/17 05/24/17 05/25/17 05:59 05:59 05:59 Intake Total 250 250 Output Total 100 Balance 250 150 Intake: Oral (ml) 250 250 Output: Urine (ml) 100 Bedside Commode 100 Other: Intake Quantity Yes Sufficient Number of Voids Bedside Commode 2 1 Vital Signs Temp Pulse Resp BP Pulse Ox 36.7 C 85 16 113/71 93 05/24/17 07:14 05/24/17 07:14 05/24/17 07:14 05/24/17 07:14 05/24/17 07:14 Laboratory Results 05/21/17 04:55 05/21/17 04:55 ICD10 Worksheet Patient Problems: Problems Problem Status Onset Generalized weakness Acute Inadequate pain control Acute
[2017-05-24] MEDS: CARBIDOPA/LEVODOPA 10MG/100MG 1 TAB PO SCH ×3 (07:56→22:13)
[2017-05-24] MEDS: CHOLECALCIFEROL VIT D3 2,000 UNITS TAB/CAP PO SCH (07:57)
[2017-05-24] MEDS: LIDOCAINE 5% 1 EA PATCH TD SCH (08:22)
[2017-05-24] MEDS: CALCITONIN 200 UNITS/SPRAY INH NS SCH (10:38)
[2017-05-24 11:40] LABS: HEMATOCRIT 41.2 % (38.0-47.0); HEMOGLOBIN 14.3 g/dL (12.6-16.3); MEAN CELL HEMOGLOBIN CONCENTR. 34.7 g/dL (32.4-36.7); MEAN CELL VOLUME 89.4 fL (81.5-99.8); RED BLOOD CELL COUNT 4.61 10^6/uL (4.18-5.33); RED CELL DISTRIBUTION WIDTH 12.5 % (11.5-15.2)
[2017-05-24 11:50] LABS: INR 1.2 (0.83-1.16); PROTIME(PATIENT) 15.2 SEC (12.0-15.0)
[2017-05-24 11:51] LABS: APTT 26.9 SEC (23.0-38.0)
[2017-05-24 12:15] LABS: ANION GAP 9 mEq/L (8-16); CALCIUM 9.4 mg/dL (8.5-10.4); CARBON DIOXIDE 26 mEq/l (22-31); CHLORIDE 102 mEq/L (97-110); CREATININE 0.8 mg/dL (0.6-1.0); GLOMERULAR FILTRATION RATE > 60; GLUCOSE 92 mg/dL (70-100); POTASSIUM 4.4 mEq/L (3.5-5.2); SODIUM 137 mEq/L (134-144)
[2017-05-24] MEDS ORDERED: NS 1,000 ML IV ONE (16:00)
[2017-05-24] MEDS ORDERED: DEXAMETHASONE 10 MG/ML VIAL IVP ONE (16:00)
[2017-05-24] MEDS ORDERED: CLINDAMYCIN 900 MG/DEXTROSE 50 ML IV ONE (16:00)
[2017-05-24] MEDS ORDERED: PROPOFOL 200 MG/20 ML VIAL ONE (16:28)
[2017-05-24] MEDS ORDERED: REMIFENTANIL HCL 1 MG VIAL ONE (16:30)
--- NOTE | 2017-05-24 16:54 | HOSPPROG ---
Hospitalist Progress Note Assessment/Plan: * Acute L1 compression fracture -retropulsion but no cord compromise -[place] brace -very poor pain control - now agreeable to kyphoplasty -to IR today * Parkinson's -continue Sinemet Subjective: Pain very severe - immediately comes back with a vengence as soon as narcs wear off Objective: Vital Signs Temp Pulse Resp BP Pulse Ox 36.7 C 85 16 113/71 93 05/24/17 07:14 05/24/17 07:14 05/24/17 07:14 05/24/17 07:14 05/24/17 07:14 Laboratory Results 05/24/17 11:30 05/24/17 11:30 05/23/17 05/24/17 05/25/17 05:59 05:59 05:59 Intake Total 250 250 Output Total 100 Balance 250 150 PT 15.2 SEC (12.0-15.0) H 05/24/17 11:30 INR 1.20 (0.83-1.16) H 05/24/17 11:30 IV morphine required for pain control - Physical Exam Constitutional: no apparent distress, appears nourished, not in pain Cardiovascular: regular rate and rhythym, no murmur, rub, or gallop Respiratory: no respiratory distress, no rales or rhonchi, clear to auscultation Gastrointestinal: normoactive bowel sounds, soft, non-tender abdomen, no palpable masses Skin: no rashes or abrasions, no fluctuance, no induration Neurologic: AAOx3, sensation intact bilaterally Psychiatric: interacting appropriately, not anxious, not encephalopathic, thought process linear ICD10 Worksheet Patient Problems: Problems Problem Status Onset Generalized weakness Acute Inadequate pain control Acute
[2017-05-24] MEDS ORDERED: DEXAMETHASONE 4 MG/ML VIAL ONE (17:09)
[2017-05-24] MEDS ORDERED: ONDANSETRON 4 MG/2 ML VIAL ONE (17:26)
[2017-05-24] MEDS ORDERED: IOPAMIDOL (ISOVUE-300) 100 ML BTL ONE (17:27)
[2017-05-24] MEDS ORDERED: BUPIVACAINE 0.5% 30 ML SDV ONE (17:27)
--- NOTE | 2017-05-24 18:04 | POSTOPPROG ---
Post Op Note Date of Operation: 05/24/17 Surgeon: Rosetta Reynaga Anesthesiologist: Dr. Conley Anesthesia: GET(General Endotracheal) Pre-op Diagnosis: L1 fx Post-op Diagnosis: same Indication: severe pain Procedure: L1 kyphoplasty Findings: see report Inf/Abcess present in the surg proc area at time of surgery?: No Depth: Superfical (Skin SQ) EBL: Minimal Complications: None
[2017-05-24] MEDS: PATCH REMOVAL 1 EA PATCH TD SCH (22:12)
--- NOTE | 2017-05-24 23:05 | POSTANESTH ---
Post Anesthetic Evaluation Cardiovascular Status: Normal, Stable Respiratory Status: Normal, Stable Level of Consciousness/Mental Status: Can Participate in Eval Pain Control: Adequate, Prn Tx Ordered Nausea/Vomiting Control: Adequate, Prn Tx Ordered Complications Possibly Related to Anesthesia: None Noted
[2017-05-25] MEDS: LEVOTHYROXINE 25 MCG TAB PO SCH (05:35)
--- NOTE | 2017-05-25 09:49 | NEUSURGPN ---
Assessment/Plan: Assessment: 82 y/o female with L1 compression fx s/p vertebroplasty on 05/24 Plan: -pain much improved following vertebroplasty at L1 yesterday with IR -does not need to wear the brace -PT/OT -pain control -stable for discharge from our standpoint for discharge. will sign off and follow peripherally Subjective: Back pain much improved. No LE symptoms. Objective: Awake. alert. Speech fluent Facial expression symmetrical R>L UE tremor LE strength at 5/5 Sensation intact - Physician Discussed Patient with DrLesly: Jennifer Neurosurgery Physical Exam - Vitals, I&O, Labs I and O 05/24/17 05/25/17 05/26/17 05:59 05:59 05:59 Intake Total 250 550 Output Total 100 600 Balance 150 -50 Intake: Oral (ml) 250 250 IV Intake (ml) 300 Output: Urine (ml) 100 600 Bedside Commode 100 600 Other: Number of Voids Bedpan 1 Bedside Commode 1 1 Vital Signs Temp Pulse Resp BP Pulse Ox 36.7 C 102 H 13 105/67 90 L 05/25/17 07:41 05/25/17 07:41 05/25/17 07:41 05/25/17 07:41 05/25/17 07:41 Laboratory Results 05/24/17 11:30 05/24/17 11:30 ICD10 Worksheet Patient Problems: Problems Problem Status Onset Generalized weakness Acute Inadequate pain control Acute
[2017-05-25] MEDS: CARBIDOPA/LEVODOPA 10MG/100MG 1 TAB PO SCH ×3 (10:33→21:59)
[2017-05-25] MEDS: CHOLECALCIFEROL VIT D3 2,000 UNITS TAB/CAP PO SCH (10:33)
[2017-05-25] MEDS: CALCITONIN 200 UNITS/SPRAY INH NS SCH (10:34)
[2017-05-25] MEDS: oxyCODONE IR 5 MG TAB PO PRN ×2 (10:34→22:29)
[2017-05-25] MEDS: LIDOCAINE 5% 1 EA PATCH TD SCH ×2 (10:34→11:34)
--- NOTE | 2017-05-25 14:58 | HOSPPROG ---
Hospitalist Progress Note Assessment/Plan: # L1 compression fracture s/p kypho - overall pain improved # parkinson's - sinemet Subjective: pain better post kyphoplasty; new pain on the L side of her back Objective: Vital Signs Temp Pulse Resp BP Pulse Ox 36.9 C 90 15 119/72 90 L 05/25/17 11:39 05/25/17 11:39 05/25/17 11:39 05/25/17 11:39 05/25/17 11:39 Laboratory Results 05/24/17 11:30 05/24/17 11:30 05/24/17 05/25/17 05/26/17 05:59 05:59 05:59 Intake Total 250 550 Output Total 100 600 Balance 150 -50 PT 15.2 SEC (12.0-15.0) H 05/24/17 11:30 INR 1.20 (0.83-1.16) H 05/24/17 11:30 chart reviewed imaging reviewed - Physical Exam Constitutional: no apparent distress, appears nourished, other (L hand tremor) Cardiovascular: regular rate and rhythym, no murmur, rub, or gallop Respiratory: no respiratory distress, no rales or rhonchi, clear to auscultation Gastrointestinal: normoactive bowel sounds, soft, non-tender abdomen, no palpable masses ICD10 Worksheet Patient Problems: Problems Problem Status Onset Inadequate pain control Acute Generalized weakness Acute
[2017-05-25] MEDS: PATCH REMOVAL 1 EA PATCH TD SCH (22:01)
[2017-05-26] MEDS: ACETAMINOPHEN 325 MG TAB PO PRN (03:54)
[2017-05-26] MEDS: IBUPROFEN 200 MG TAB PO PRN (04:56)
[2017-05-26] MEDS: LEVOTHYROXINE 25 MCG TAB PO SCH (04:56)
[2017-05-26] MEDS: CARBIDOPA/LEVODOPA 10MG/100MG 1 TAB PO SCH ×3 (08:47→21:28)
[2017-05-26] MEDS: CHOLECALCIFEROL VIT D3 2,000 UNITS TAB/CAP PO SCH (10:02)
[2017-05-26] MEDS: CALCITONIN 200 UNITS/SPRAY INH NS SCH (10:04)
[2017-05-26] MEDS: LIDOCAINE 5% 1 EA PATCH TD SCH ×2 (10:09→11:27)
--- NOTE | 2017-05-26 13:47 | SOAPPROG ---
[facility] Progress Note Assessment/Plan: Assessment: 1. Good pain relief from L1 kyphoplasty. 2. Possible osteoporosis. 3. Last DEXA was over three years ago, showing low bone density, just shy of the threshold of diagnosis of osteoporosis. Plan: Recommend DEXA bone mineral densitometry. 05/26/17 13:27 Subjective: Patient had immediate excellent relief of back pain after kyphoplasty. Feels weak. Rehab is planned. Objective: Last DEXA was over three years ago. Vital Signs Temp Pulse Resp BP Pulse Ox 36.7 C 85 16 98/55 L 90 L 05/26/17 11:05 05/26/17 11:05 05/26/17 11:05 05/26/17 11:05 05/26/17 11:05 Laboratory Results 05/24/17 11:30 05/24/17 11:30 05/25/17 05/26/17 05/27/17 05:59 05:59 05:59 Intake Total 550 450 Output Total 600 Balance -50 450 PT 15.2 SEC (12.0-15.0) H 05/24/17 11:30 INR 1.20 (0.83-1.16) H 05/24/17 11:30 ICD10 Worksheet Patient Problems: Problems Problem Status Onset Generalized weakness Acute Inadequate pain control Acute
--- NOTE | 2017-05-26 15:17 | HOSPPROG ---
Hospitalist Progress Note Assessment/Plan: # L1 compression fracture s/p kypho - pain improved # osteopenia/osteoporosis - outpt DEXA # parkinson's - sinemet Subjective: pain slightly worse today from yesterday Objective: Vital Signs Temp Pulse Resp BP Pulse Ox 36.7 C 85 16 98/55 L 90 L 05/26/17 11:05 05/26/17 11:05 05/26/17 11:05 05/26/17 11:05 05/26/17 11:05 Laboratory Results 05/24/17 11:30 05/24/17 11:30 05/25/17 05/26/17 05/27/17 05:59 05:59 05:59 Intake Total 550 450 Output Total 600 Balance -50 450 PT 15.2 SEC (12.0-15.0) H 05/24/17 11:30 INR 1.20 (0.83-1.16) H 05/24/17 11:30 - Physical Exam Constitutional: no apparent distress, appears nourished, other (L hand tremor) Cardiovascular: regular rate and rhythym, no murmur, rub, or gallop Respiratory: no respiratory distress, no rales or rhonchi, clear to auscultation Gastrointestinal: normoactive bowel sounds, soft, non-tender abdomen, no palpable masses ICD10 Worksheet Patient Problems: Problems Problem Status Onset Inadequate pain control Acute Generalized weakness Acute
[2017-05-26] MEDS: oxyCODONE IR 5 MG TAB PO PRN ×3 (15:59→23:58)
[2017-05-26] MEDS: PATCH REMOVAL 1 EA PATCH TD SCH (21:30)
[2017-05-27] MEDS: oxyCODONE IR 5 MG TAB PO PRN (04:04)
[2017-05-27] MEDS: LEVOTHYROXINE 25 MCG TAB PO SCH (05:20)
[2017-05-27] MEDS: CHOLECALCIFEROL VIT D3 2,000 UNITS TAB/CAP PO SCH (08:54)
[2017-05-27] MEDS: CALCITONIN 200 UNITS/SPRAY INH NS SCH (08:55)
[2017-05-27] MEDS: CARBIDOPA/LEVODOPA 10MG/100MG 1 TAB PO SCH ×3 (08:55→20:50)
[2017-05-27] MEDS: LIDOCAINE 5% 1 EA PATCH TD SCH (08:56)
--- NOTE | 2017-05-27 10:17 | HOSPPROG ---
Hospitalist Progress Note Assessment/Plan: # worsening weakness - will check labs, cont aggressive PT/OT # L1 compression fracture s/p kypho - pain improved # osteopenia/osteoporosis - outpt DEXA # parkinson's - sinemet Subjective: feels weaker today, no F/C/N/V/D Objective: Vital Signs Temp Pulse Resp BP Pulse Ox 36.4 C 81 16 129/75 H 92 05/27/17 08:00 05/27/17 08:00 05/27/17 08:00 05/27/17 08:00 05/27/17 08:00 Laboratory Results 05/24/17 11:30 05/24/17 11:30 05/26/17 05/27/17 05/28/17 05:59 05:59 05:59 Intake Total 450 600 Output Total 1100 Balance 450 -500 PT 15.2 SEC (12.0-15.0) H 05/24/17 11:30 INR 1.20 (0.83-1.16) H 05/24/17 11:30 - Physical Exam Constitutional: no apparent distress, appears nourished, other (L sided tremor) Cardiovascular: regular rate and rhythym, no murmur, rub, or gallop Respiratory: no respiratory distress, no rales or rhonchi, clear to auscultation Gastrointestinal: normoactive bowel sounds, soft, non-tender abdomen, no palpable masses ICD10 Worksheet Patient Problems: Problems Problem Status Onset Inadequate pain control Acute Generalized weakness Acute
[2017-05-27 10:46] LABS: % IMMATURE GRANULYOCYTES 0.4 % (0.0-1.1); ABSOLUTE IMMATURE GRANULOCYTES 0.04 10^3/uL (0.00-0.10); ADD DIFF? NO; ADD MORPH? NO; ADD SCAN? NO; ATYPICAL LYMPHOCYTE FLAG 0 (0-99); FRAGMENT RBC FLAG 0 (0-99); HEMOGLOBIN 15.2 g/dL (12.6-16.3); LEFT SHIFT FLG 0 (0-99); LIPEMIA HEMOLYSIS FLAG 90 (0-99); MEAN CELL HEMOGLOBIN 30.8 pg (27.9-34.1); MEAN CELL HEMOGLOBIN CONCENTR. 34.5 g/dL (32.4-36.7); MEAN CELL VOLUME 89.1 fL (81.5-99.8); MEAN PLATELET VOLUME 10.3 fL (8.7-11.7); PLATELET CLUMPS FLAG 0 (0-99); PLATELET COUNT 243 10^3/uL (150-400); RED BLOOD CELL COUNT 4.94 10^6/uL (4.18-5.33); RED CELL DISTRIBUTION WIDTH 12.6 % (11.5-15.2)
[2017-05-27] MEDS: IBUPROFEN 200 MG TAB PO PRN ×2 (10:56→20:49)
[2017-05-27 11:08] LABS: ALANINE AMINOTRANSFERASE 40 IU/L (9-52); ALBUMIN 4.3 g/dL (3.5-5.0); ALKALINE PHOSPHATASE 79 IU/L (38-126); ANION GAP 11 mEq/L (8-16); ASPARTATE AMINOTRANSFERASE 22 IU/L (14-46); BILIRUBIN,TOTAL 1.1 mg/dL (0.1-1.4); CALCIUM 9.9 mg/dL (8.5-10.4); CARBON DIOXIDE 24 mEq/l (22-31); CHLORIDE 104 mEq/L (97-110); CREATININE 0.8 mg/dL (0.6-1.0); GLOMERULAR FILTRATION RATE > 60; GLUCOSE 110 mg/dL (70-100); POTASSIUM 4.5 mEq/L (3.5-5.2); SODIUM 139 mEq/L (134-144); TOTAL PROTEIN 7.2 g/dL (6.3-8.2)
[2017-05-27] MEDS ORDERED: MAGNESIUM HYDROXIDE 30 ML UDCUP PO PRN (16:13)
[2017-05-27] MEDS ORDERED: LACTULOSE 20 GM/30 ML UDCUP PO PRN (16:13)
[2017-05-27] MEDS ORDERED: BISACODYL 10 MG SUPP PR PRN (16:13)
[2017-05-27] MEDS ORDERED: POLYETHYLENE GLYCOL 3350 17 GM PKT PO PRN (16:13)
[2017-05-27] MEDS: SENNOSIDES/DOCUSATE SODIUM TAB PO SCH (20:49)
[2017-05-27] MEDS: PATCH REMOVAL 1 EA PATCH TD SCH (22:51)
[2017-05-28] MEDS: IBUPROFEN 200 MG TAB PO PRN (04:17)
[2017-05-28] MEDS: LEVOTHYROXINE 25 MCG TAB PO SCH (04:18)
[2017-05-28 07:52] VITALS: BP 103/73; PULSE 81; RESP 16; TEMP 97.5; O2SAT 93
[2017-05-28] MEDS: CHOLECALCIFEROL VIT D3 2,000 UNITS TAB/CAP PO SCH (09:11)
[2017-05-28] MEDS: CARBIDOPA/LEVODOPA 10MG/100MG 1 TAB PO SCH (09:12)
[2017-05-28] MEDS: SENNOSIDES/DOCUSATE SODIUM TAB PO SCH (09:12)
[2017-05-28] MEDS: CALCITONIN 200 UNITS/SPRAY INH NS SCH (09:13)
[2017-05-28] MEDS: LIDOCAINE 5% 1 EA PATCH TD SCH (09:15)
[2017-05-28] MEDS: oxyCODONE IR 5 MG TAB PO PRN (09:23)
--- NOTE | 2017-05-28 10:06 | PDIAF ---
- Diagnosis Diagnosis: L1 compression fracture Code Status: Full Code - Medication Management Discharge Medications: Medications to Continue on Transfer Carbidopa/Levodopa 10/100Mg [Sinemet 10/100 MG (*)] 0.5 tab PO TID 09/23/12 [ Last Taken 05/18/17 3 TABS] Cholecalciferol Vit D3 [Vitamin D3 (*)] 5,000 units PO DAILY 05/18/17 [Last Taken Unknown] Levothyroxine [Synthroid 25 mcg (*)] 25 mcg PO DAILY06 05/18/17 [Last Taken Unknown] Ibuprofen [Motrin (*)] 400 mg PO Q4HRS PRN #0 tab 05/28/17 [Last Taken Unknown] Lidocaine 5% [Lidoderm 5% Patch (*)] 1 ea TD DAILY patch 05/28/17 [Last Taken Unknown] Patch Removal 1 ea TD DAILY21 patch 05/28/17 [Last Taken Unknown] Polyethylene Glycol 3350 [Miralax 17 gm (*)] 17 gm PO DAILY PRN #0 pkt 05/28/17 [Last Taken Unknown] Sennosides/Docusate Sodium [Senokot-S] 1 - 2 tab PO BID tab 05/28/17 [Last Taken Unknown] oxyCODONE IR [Oxycodone Ir (*)] 5 - 10 mg PO Q4 PRN #0 tab 05/28/17 [Last Taken Unknown] Discharge Medications: Refer to the Discharge Home Medication list for PRN reason. - Orders Services needed: Registered Nurse, Certified Consular Officer, Physical Therapy, Occupational Therapy, Speech Language Pathologist - Follow Up Care Current Providers and Referrals: Melanie Denney DO [Doctor of Osteopathy] - (Follow up as needed, if would like to discuss DBS as an option for Parkinson's disease) Francisco Stewart MD [Primary Care Provider] - As per Instructions Emil Rodriguez MD [Medical Doctor] - follow up in 2 weeks (Follow up as needed for back pain)
--- NOTE | 2017-05-28 10:24 | GDS ---
[f rep st] DISCHARGE SUMMARY ALL DIAGNOSES: 1. Acute L1 compression fracture. 2. Fall. 3. Osteopenia/osteoporosis. 4. Parkinson's on Sinemet. HOSPITAL COURSE: 82-year-old female, who suffered a fall from standing height with an acute L1 comp ression fracture. I suspect that this was an osteoporotic fracture given the mechanism. She was se en by Neurosurgery. She underwent a kyphoplasty after failing conservative therapy. This was done on 05/24/2017. She has had ongoing improvement in her pain and functional status since then. She i s currently working with Physical therapy as well as Occupational therapy. Her pain is controlled w ith a Lidoderm patch as well as low-dose oxycodone. She will be discharged to [facility] for ongoing physical therapy needs. I have also ordered speech therapy given a weak voice which has not recovered after her fall. She has Parkinson's. This has been relatively well controlled. She is on her home dose of Sinemet. BILLING: I spent more than 30 minutes on the day of discharge coordinating care. /[id number]/MODL
== END 2017-05-28 11:44 | DRG 517 ==
LOC: EDUNIT# → INTOOBSV 16:42 → F3E 18:05 → OBSVTOIN 21:39
PROVIDERS: ADMIT Internal Medicine; ATTEND Internal Medicine
DX: S32.010A Wedge compression fracture of first lumbar vertebra, initial encounter for closed fracture (principal); W18.30XA Fall on same level, unspecified, initial encounter; G20 Parkinson's disease; R26.9 Unspecified abnormalities of gait and mobility; R35.0 Frequency of micturition; E03.9 Hypothyroidism, unspecified; M85.80 Other specified disorders of bone density and structure, unspecified site; R09.02 Hypoxemia; T40.605A Adverse effect of unspecified narcotics, initial encounter
CPT/HCPCS: 97116-GP; 97162-GP; 97166-GO; 97530-GO; 97530-GP; 97535-GO; G8978-GP-CK; G8979-GP-CJ; G8987-GO-CL; G8988-GO-CJ; G8989-GO-CJ; J1100; J1650; J2405; J2704; Q9967

== ENCOUNTER → 2017-08-01 | Outpatient (CLI) | payer OTHER | LOC: BMCIMAGING 13:26 | PROVIDERS: ATTEND Neurological Surgery | DX: S32.010D Wedge compression fracture of first lumbar vertebra, subsequent encounter for fracture with routine healing (principal); S22.080A Wedge compression fracture of T11-T12 vertebra, initial encounter for closed fracture; M51.25 Other intervertebral disc displacement, thoracolumbar region ==

== ENCOUNTER → 2017-09-13 | Outpatient (CLI) | payer OTHER | LOC: FIMAGING 14:04 | PROVIDERS: ATTEND Internal Medicine | DX: Z13.820 Encounter for screening for osteoporosis (principal); M81.0 Age-related osteoporosis without current pathological fracture; S32.010D Wedge compression fracture of first lumbar vertebra, subsequent encounter for fracture with routine healing ==

== ENCOUNTER → 2017-10-25 | Outpatient (CLI) | payer OTHER | LOC: BMCIMAGING 10:44 | PROVIDERS: ATTEND Physician Assistant Surgical | DX: M51.36 Other intervertebral disc degeneration, lumbar region (principal); M41.9 Scoliosis, unspecified ==

== ENCOUNTER → 2018-08-02 | Outpatient (CLI) | payer OTHER | LOC: FIMAGING 13:20 | PROVIDERS: ATTEND Internal Medicine | DX: Z12.31 Encounter for screening mammogram for malignant neoplasm of breast (principal) ==

== ENCOUNTER 2018-12-14 18:19 | Inpatient (IN) | payer OTHER ==
--- NOTE | 2018-12-14 18:33 | EDPHY ---
H & P Time Seen by Provider: 12/14/18 18:21 HPI/ROS: CHIEF COMPLAINT: Low back pain, low back pain HISTORY OF PRESENT ILLNESS: The patient is an 83-year-old female with a history of Parkinson's disease and previous lumbar kyphoplasty who presents to the emergency department after having a fall. The patient states she normally uses a walker because of her Parkinson's disease. She was attempting to get something to drink when she fell backwards. She states she was having trouble navigating getting a drink and holding her walker at the same time. She struck her low back. She now has mild low back pain. It is worse with movement. She has had no new weakness or numbness. She does have peripheral neuropathy at baseline. Patient has no incontinence of urine or stool. No recent fevers or chills. Patient denies striking her head or losing consciousness. REVIEW OF SYSTEMS: 10 systems were reveiwed and are negative with the exception of the elements mentioned in the history of present illness. Past Medical/Surgical History: Includes Parkinson's disease, L1 compression fracture, osteoporosis, hypothyroidism Social history: Patient does not smoke Smoking Status: Never smoked Physical Exam: Vitals noted. GENERAL: No acute distress, alert. HEENT: Eyes normal to inspection,no signs of dehydration. No head injury NECK: Normal, supple. No spinal tenderness RESPIRATORY: Clear to auscultation bilaterally, no rales, rhonchi or wheezing. CVS: Regular rate and rhythm, no rubs, murmurs, or gallops. ABDOMEN: Soft, nontender, nondistended, no organomegaly. Benign BACK: Normal to inspection, no CVA tenderness. Lower lumbar and sacral tenderness palpation. No step-off or deformity. No skin breakdown. No bruising SKIN: Normal color, no rash, warm, dry. No pallor. EXTREMITIES: No pedal edema, no calf tenderness, no Homans sign or cords, no joint swelling. NEURO/PSYCH: Alert and oriented, slightly flat affect, normal motor sensory exam. No focal deficits Constitutional: Initial Vital Signs Temperature (C) 36.8 C 12/14/18 18:29 Heart Rate 84 12/14/18 18:29 Respiratory Rate 18 12/14/18 18:29 Blood Pressure 145/92 H 12/14/18 18:29 O2 Sat (%) 93 12/14/18 18:29 O2 Delivery Mode Room Air Allergies/Adverse Reactions: Penicillins Allergy (Intermediate, Verified 12/14/18 18:29) Hives Home Medications: Medication Instructions Recorded Carbidopa/Levodopa 10/100Mg 0.5 tab PO TID 09/23/12 [Sinemet 10/100 MG (*)] Cholecalciferol Vit D3 [Vitamin D3 5,000 units PO DAILY 05/18/17 (*)] Levothyroxine [Synthroid 25 mcg 25 mcg PO DAILY06 05/18/17 (*)] Ibuprofen [Motrin (*)] 400 mg PO Q4HRS PRN #0 tab 05/28/17 Lidocaine 5% [Lidoderm 5% Patch] 1 ea TD DAILY patch 05/28/17 Patch Removal 1 ea TD DAILY21 patch 05/28/17 Polyethylene Glycol 3350 [Miralax 17 gm PO DAILY PRN #0 pkt 05/28/17 17 gm (*)] Sennosides/Docusate Sodium 1 - 2 tab PO BID tab 05/28/17 [Senokot-S] oxyCODONE IR [Oxycodone Ir (*)] 5 - 10 mg PO Q4 PRN #0 tab 05/28/17 Medical Decision Making - Diagnostics Imaging Results: Imaging Impressions Lumbar Spine CT 12/14/18 18:36 Impression: 1. Prior kyphoplasty at L1 with retropulsion of the posterior endplate, similar appearance to prior lumbar spine radiographs with decreasing lumbar spinal canal AP diameter to 9 mm. 2. Advanced degenerative disk disease at L2-L3 and L4-L5. 3. No acute lumbar spine fracture identified. Results called to Dr. Cuevas at the time of the examination. Pelvis CT 12/14/18 18:36 Impression: 1. Bilateral nondisplaced sacral insufficiency fractures. 2. Advanced bilateral hip osteoarthritis, left greater than right. Results called to Dr. Cuevas at the time of the interpretation. ED Course/Re-evaluation: In the emergency department I discussed possible etiologies with the patient. I answered all her questions. Patient denies striking her head or losing consciousness. A CT of the pelvis and lumbar spine were ordered. Lumbar spine CT: Please refer the dictated report. There is previous injury at L1. This seems consistent with old images. Sacral CT: Please refer the dictated report by Dr. Omalley. The patient has sacral insufficiency fractures. I discussed the results with Dr. Carmichael. He will accept the patient. I discussed case with Orthopedics, Dr. Pina. Patient was given morphine 4 mg IV for pain. The patient requested morphine. Differential Diagnosis: My differential includes but is not limited to fracture, dislocation, contusion , sprain, musculoskeletal strain - Data Points Laboratory Results: Laboratory Results 12/14/18 18:33 12/14/18 18:33 12/14/18 12/14/18 18:33 18:33 WBC 16.97 10^3/uL H 10^3/uL (3.80-9.50) RBC 4.64 10^6/uL 10^6/uL (4.18-5.33) Hgb 14.5 g/dL g/dL (12.6-16.3) Hct 43.4 % % (38.0-47.0) MCV 93.5 fL fL (81.5-99.8) MCH 31.3 pg pg (27.9-34.1) MCHC 33.4 g/dL g/dL (32.4-36.7) RDW 12.7 % % (11.5-15.2) Plt Count 197 10^3/uL 10^3/uL (150-400) MPV 11.2 fL fL (8.7-11.7) Neut % (Auto) 86.0 % H % (39.3-74.2) Lymph % (Auto) 8.8 % L % (15.0-45.0) [place] % (Auto) 3.8 % L % (4.5-13.0) Eos % (Auto) 0.0 % L % (0.6-7.6) Baso % (Auto) 0.2 % L % (0.3-1.7) Nucleat RBC Rel Count 0.0 % % (0.0-0.2) Absolute Neuts (auto) 14.59 10^3/uL H 10^3/uL (1.70-6.50) Absolute Lymphs (auto) 1.50 10^3/uL 10^3/uL (1.00-3.00) Absolute Monos (auto) 0.65 10^3/uL 10^3/uL (0.30-0.80) Absolute Eos (auto) 0.00 10^3/uL L 10^3/uL (0.03-0.40) Absolute Basos (auto) 0.03 10^3/uL 10^3/uL (0.02-0.10) Absolute Nucleated RBC 0.00 10^3/uL 10^3/uL (0-0.01) Immature Gran % 1.2 % H % (0.0-1.1) Immature Gran # 0.20 10^3/uL H 10^3/uL (0.00-0.10) Sodium 137 mEq/L mEq/L (135-145) Potassium 4.6 mEq/L mEq/L (3.5-5.2) Chloride 103 mEq/L mEq/L (97-110) Carbon Dioxide 27 mEq/l mEq/l (22-31) Anion Gap 7 mEq/L mEq/L (6-14) BUN 21 mg/dL mg/dL (7-23) Creatinine 0.8 mg/dL mg/dL (0.6-1.0) Estimated GFR > 60 Glucose 87 mg/dL mg/dL (70-100) Calcium 9.8 mg/dL mg/dL (8.5-10.4) Total Bilirubin 0.8 mg/dL mg/dL (0.1-1.4) Conjugated Bilirubin 0.4 mg/dL mg/dL (0.0-0.5) Unconjugated Bilirubin 0.4 mg/dL mg/dL (0.0-1.1) AST 33 IU/L IU/L (14-46) ALT 36 IU/L IU/L (9-52) Alkaline Phosphatase 50 IU/L IU/L (38-126) Total Protein 7.1 g/dL g/dL (6.3-8.2) Albumin 4.3 g/dL g/dL (3.5-5.0) Medications Given: Discontinued Medications Morphine Sulfate (Morphine) 4 mg IVP ONCE ONE Stop: 12/14/18 20:17 Last Admin: 12/14/18 20:19 Dose: 4 mg Oxycodone HCl (Oxycodone Ir) 5 mg PO ONCE ONE Stop: 12/14/18 18:58 Last Admin: 12/14/18 19:02 Dose: 5 mg Departure - Departure Disposition: [facility] Acute Clinical Impression: Low back pain Qualifiers: Chronicity: acute Back pain laterality: midline Sciatica presence: without sciatica Qualified Code(s): M54.5 - Low back pain Fall Qualifiers: Encounter type: initial encounter Qualified Code(s): W19.XXXA - Unspecified fall, initial encounter Sacral insufficiency fracture Qualifiers: Encounter type: initial encounter Qualified Code(s): M84.48XA - Pathological fracture, other site, initial encounter for fracture Condition: Good
[2018-12-14] MEDS ORDERED: oxyCODONE IR 5 MG TAB PO ONE (18:57)
[2018-12-14] MEDS ORDERED: ONDANSETRON 4 MG/2 ML VIAL IVP PRN (20:02)
[2018-12-14] MEDS ORDERED: ACETAMINOPHEN 325 MG TAB PO PRN (20:02)
[2018-12-14] MEDS ORDERED: traMADol 50 MG TAB PO PRN (20:05)
[2018-12-14 20:11] LABS: PLATELET COUNT 197 10^3/uL (150-400)
[2018-12-14] MEDS: LIDOCAINE 4%/MENTHOL 1% PATCH TD SCH (20:54)
[2018-12-14] MEDS: MELATONIN 3 MG TAB PO SCH (21:54)
--- NOTE | 2018-12-15 00:38 | PDGENHP ---
History and Physical - Chief Complaint Fall - History of Present Illness 83 yo F w/ hx of Parkinson's and hypothyroid presents after a fall. The patient was attempting to get something to drink when she fell backwards. She hit her lower back when she fell. She had a similar presentation previously, was found to have an L1 compression fracture, and underwent a kyphoplasty. Today her evaluation is notable for sacral fracture on pelvic CT. She is being admitted for pain control, therapy evaluation, and possible kyphoplasty if warranted. At the time of my evaluation the patient is resting comfortably and in minimal pain. Case discussed with Dr. Carmichael; records reviewed and summarized above. History Information - Allergies/Home Medication List Allergies/Adverse Reactions: Penicillins Allergy (Intermediate, Verified 12/14/18 18:29) Hives Home Medications: Cholecalciferol Vit D3 [Vitamin D3 (*)] 5,000 units PO DAILY 05/18/17 [Last Taken Unknown] Levothyroxine [Synthroid 25 mcg (*)] 25 mcg PO DAILY06 05/18/17 [Last Taken ] Carbidopa/Levodopa 25/100Mg [Sinemet 25/100 MG (*)] 0.5 tab PO TID@08,1230,1630 12/14/18 [Last Taken 12/14/18 4:30PM] Sennosides/Docusate Sodium [Senokot-S] 2 tab PO BID PRN 12/14/18 [Last Taken Unknown] I have personally reviewed and updated: family history, medical history - Past Medical History osteoporosis Additional medical history: Parkinson's disease. Hypothyroid - Surgical History Additional surgical history: L1 kyphoplasty - Family History Additional family history: Parents - Social History Smoking Status: Former smoker Review of Systems Review of Systems: ROS: 10pt was reviewed & negative except for what was stated in HPI & below Physical Exam Physical Exam: Temp Pulse Resp BP Pulse Ox 36.6 C 101 H 16 119/70 95 12/14/18 21:31 12/14/18 21:31 12/14/18 21:31 12/14/18 21:31 12/14/18 21:31 O2 (L/minute) 1.5 Constitutional: appears nourished, uncomfortable Eyes: EOMI Ears, Nose, Mouth, Throat: moist mucous membranes, no oral mucosal ulcers Cardiovascular: regular rate and rhythym, systolic murmur Respiratory: no respiratory distress, clear to auscultation Gastrointestinal: normoactive bowel sounds, soft, non-tender abdomen Skin: warm, normal color Musculoskeletal: no joint effusions, muscular tenderness Neurologic: No weakness, No facial droop Psychiatric: interacting appropriately, not anxious Lab Data & Imaging Review 12/14/18 18:33 12/14/18 18:33 WBC 16.97 10^3/uL (3.80-9.50) H 12/14/18 18:33 RBC 4.64 10^6/uL (4.18-5.33) 12/14/18 18:33 Hgb 14.5 g/dL (12.6-16.3) 12/14/18 18:33 Hct 43.4 % (38.0-47.0) 12/14/18 18:33 MCV 93.5 fL (81.5-99.8) 12/14/18 18:33 MCH 31.3 pg (27.9-34.1) 12/14/18 18:33 MCHC 33.4 g/dL (32.4-36.7) 12/14/18 18:33 RDW 12.7 % (11.5-15.2) 12/14/18 18:33 Plt Count 197 10^3/uL (150-400) 12/14/18 18:33 MPV 11.2 fL (8.7-11.7) 12/14/18 18:33 Neut % (Auto) 86.0 % (39.3-74.2) H 12/14/18 18:33 Lymph % (Auto) 8.8 % (15.0-45.0) L 12/14/18 18:33 Appling % (Auto) 3.8 % (4.5-13.0) L 12/14/18 18:33 Eos % (Auto) 0.0 % (0.6-7.6) L 12/14/18 18:33 Baso % (Auto) 0.2 % (0.3-1.7) L 12/14/18 18:33 Nucleat RBC Rel Count 0.0 % (0.0-0.2) 12/14/18 18:33 Absolute Neuts (auto) 14.59 10^3/uL (1.70-6.50) H 12/14/18 18:33 Absolute Lymphs (auto) 1.50 10^3/uL (1.00-3.00) 12/14/18 18:33 Absolute Monos (auto) 0.65 10^3/uL (0.30-0.80) 12/14/18 18:33 Absolute Eos (auto) 0.00 10^3/uL (0.03-0.40) L 12/14/18 18:33 Absolute Basos (auto) 0.03 10^3/uL (0.02-0.10) 12/14/18 18:33 Absolute Nucleated RBC 0.00 10^3/uL (0-0.01) 12/14/18 18:33 Immature Gran % 1.2 % (0.0-1.1) H 12/14/18 18:33 Immature Gran # 0.20 10^3/uL (0.00-0.10) H 12/14/18 18:33 Sodium 137 mEq/L (135-145) 12/14/18 18:33 Potassium 4.6 mEq/L (3.5-5.2) 12/14/18 18:33 Chloride 103 mEq/L (97-110) 12/14/18 18:33 Carbon Dioxide 27 mEq/l (22-31) 12/14/18 18:33 Anion Gap 7 mEq/L (6-14) 12/14/18 18:33 BUN 21 mg/dL (7-23) 12/14/18 18:33 Creatinine 0.8 mg/dL (0.6-1.0) 12/14/18 18:33 Estimated GFR > 60 12/14/18 18:33 Glucose 87 mg/dL (70-100) 12/14/18 18:33 Calcium 9.8 mg/dL (8.5-10.4) 12/14/18 18:33 Total Bilirubin 0.8 mg/dL (0.1-1.4) 12/14/18 18:33 Conjugated Bilirubin 0.4 mg/dL (0.0-0.5) 12/14/18 18:33 Unconjugated Bilirubin 0.4 mg/dL (0.0-1.1) 12/14/18 18:33 AST 33 IU/L (14-46) 12/14/18 18:33 ALT 36 IU/L (9-52) 12/14/18 18:33 Alkaline Phosphatase 50 IU/L (38-126) 12/14/18 18:33 Total Protein 7.1 g/dL (6.3-8.2) 12/14/18 18:33 Albumin 4.3 g/dL (3.5-5.0) 12/14/18 18:33 Imaging Review: Imaging Impressions Lumbar Spine CT 12/14/18 18:36 Impression: 1. Prior kyphoplasty at L1 with retropulsion of the posterior endplate, similar appearance to prior lumbar spine radiographs with decreasing lumbar spinal canal AP diameter to 9 mm. 2. Advanced degenerative disk disease at L2-L3 and L4-L5. 3. No acute lumbar spine fracture identified. Results called to Dr. Cuevas at the time of the examination. Pelvis CT 12/14/18 18:36 Impression: 1. Bilateral nondisplaced sacral insufficiency fractures. 2. Advanced bilateral hip osteoarthritis, left greater than right. Results called to Dr. Cuevas at the time of the interpretation. Assessment & Plan Assessment: 83 yo F w/ hypothyroid and Parkinson's disease presents after a fall and found to have sacral fractures. Plan: 1. Bilateral nondisplaced sacral insufficiency fractures - Suffered from a mechanical fall from standing height. This qualifies as a fragility fracture. She is predisposed to falls due to known movement disorder. Fractures seen on pelvic CT (personally reviewed/interpreted). - Admit for observation - Conservative pain control with APAP 1g q8h bebeto, Celebrex BID, and lidocaine patch - Tramadol PRN for breakthrough - If symptoms not controlled with conservative approach, may need kyphoplasty - Recommend osteoporosis work-up as outpatient 2. Parkinson's Disease - Continue Sinemet. 3. Hypothyroid - Continue LTX. 4. Leukocytosis - Likely reactive, denies infectious symptoms. Diet - Regular Code - Full Ppx - LMWH Dispo - Admit under inpatient status
[2018-12-15] MEDS: ACETAMINOPHEN 500 MG TAB PO SCH ×2 (05:12→13:25)
[2018-12-15] MEDS: LEVOTHYROXINE 25 MCG TAB PO SCH (05:12)
[2018-12-15] MEDS: ENOXAPARIN 40 MG/0.4 ML SYR SC SCH (08:17)
[2018-12-15] MEDS: CARBIDOPA/LEVODOPA 25 MG/100 MG TAB PO SCH ×3 (08:17→16:27)
[2018-12-15] MEDS: PATCH REMOVAL 1 EA PATCH TD SCH (08:22)
--- NOTE | 2018-12-15 08:32 | HOSPPROG ---
Hospitalist Progress Note Assessment/Plan: 83yo F with Parkinson's presents after fall found to have sacral fracture. 1. Bilateral nondisplaced sacral insufficiency fractures: Neurologically intact. - Pain control with APAP 1g q8h bebeto, celebrex BID, lidocaine patch, will also made oxycodone 5mg available PRN - PT/OT - If symptoms not controlled, may need kyphoplasty 2. Fall: Mechanical in nature. PT/OT as above. 3. Osteoporosis: Given multiple fragility fractures. Vitamin D replete on recent labs. Not on disease-modifying meds, consider as outpatient. 4. Parkinson's: Uses walker at baseline, risk for falls. Continue sinemet. 5. Hypothyroidism: Continue home LT4. 6. Leukocytosis: Likely reactive, no s/s infection. VTE ppx: LMWH Code: full Diet: regular Dispo: Remain inpatient for pain control, working with therapy services. Unsafe for dc to independent living due to inability to safely ambulate. May need SNF. Subjective: No pain while lying in bed. Concern she may have pain with movement. She is hoping to avoid kyphoplasty. No new leg weakness/numbness, no bowel/bladder incontinence. Objective: Vital Signs Temp Pulse Resp BP Pulse Ox 36.6 C 78 18 97/57 L 96 12/15/18 08:00 12/15/18 08:00 12/15/18 08:00 12/15/18 08:00 12/15/18 08:00 12/14/18 12/15/18 12/16/18 05:59 05:59 05:59 Intake Total 350 Output Total 400 Balance -50 - Physical Exam Constitutional: no apparent distress, other (frail, elderly) Eyes: PERRL, anicteric sclera, EOMI Ears, Nose, Mouth, Throat: moist mucous membranes, hearing normal, ears appear normal, no oral mucosal ulcers Cardiovascular: regular rate and rhythym, no murmur, rub, or gallop, No edema Respiratory: no respiratory distress, no rales or rhonchi, clear to auscultation Gastrointestinal: normoactive bowel sounds, soft, non-tender abdomen, no palpable masses Genitourinary: no bladder fullness, no bladder tenderness, no renal bruits Skin: no rashes or abrasions, no fluctuance, no induration Musculoskeletal: generalized weakness Neurologic: AAOx3, other (mild hand tremor) Psychiatric: interacting appropriately, not anxious, not encephalopathic, thought process linear ICD10 Worksheet Patient Problems: Problems Problem Status Onset Fall Acute Low back pain Acute Sacral insufficiency fracture Acute Generalized weakness Acute Inadequate pain control Acute
--- NOTE | 2018-12-15 09:14 | PDMN ---
Medical Necessity Medical necessity: Pt meets IP criteria as of 12/14/2018 per MD and GITA AVILEZ- ( musculoskeletal disease); est los > 2 mn for ongoing tx and management of bilateral sacral fractures in an elderly patient s/p mechanical fall; requiring pain control, therapies, and surgical consultation.
[2018-12-15] MEDS ORDERED: NS 1,000 ML IV SCH (12:00)
--- NOTE | 2018-12-15 14:35 | GCON ---
REASON FOR CONSULTATION: Buttock pain. HISTORY OF PRESENT ILLNESS: The patient is an 83-year-old limited community ambulator with a walker, who sustained a fall resulting in buttock pain. She has a history of bilateral hip advanced arthros is and osteoporosis. PHYSICAL EXAMINATION: MUSCULOSKELETAL: She has focal tenderness in her sacral region. NEUROLOGIC: Her distal neurovascular exam is intact. Motion of the hips produces pain more localize d to the groin than in the sacral region. External rotation stress on the hips does not produce any pelvic pain. IMAGING: CT scan shows nondisplaced sacral insufficiency fracture. ASSESSMENT: Sacral insufficiency fracture. PLAN: Nonoperative treatment course recommended. She will be allowed to weight bear as tolerated ut ilizing a walker as needed. Followup will be on a p.r.n. basis. /[id number]/MODL
[2018-12-15] MEDS ORDERED: NS 1,000 ML IV ONE (15:54)
--- NOTE | 2018-12-15 15:55 | ASMTCMCOM ---
CM Note CM Note Notes: Pt is 83 yo F. Presents with sacral fracture after fall. Has history of parkinsons and hypothyroidism. Therapies ordered, pending eval. CM to follow. Plan: TBD Date Signed: 12/15/2018 03:54 PM Electronically Signed By:ANGELIA Guerra
[2018-12-15] MEDS: LIDOCAINE 4%/MENTHOL 1% PATCH TD SCH (19:51)
[2018-12-15] MEDS: MELATONIN 3 MG TAB PO SCH (21:07)
[2018-12-16] MEDS: ACETAMINOPHEN 500 MG TAB PO SCH ×5 (00:01→22:19)
[2018-12-16] MEDS: LEVOTHYROXINE 25 MCG TAB PO SCH (06:46)
[2018-12-16] MEDS: ENOXAPARIN 40 MG/0.4 ML SYR SC SCH (07:37)
[2018-12-16] MEDS: CARBIDOPA/LEVODOPA 25 MG/100 MG TAB PO SCH ×3 (07:38→15:54)
[2018-12-16] MEDS: oxyCODONE IR 5 MG TAB PO PRN ×3 (07:39→15:54)
--- NOTE | 2018-12-16 11:28 | ASMTCMCOM ---
CM Note CM Note Notes: PT/OT recommending SNF, and patient is amenable. Referral sent and accepted by [facility]. Case Management will follow for d/c planning. Current CM Discharge plan: [facility] Date Signed: 12/16/2018 11:27 AM Electronically Signed By:Jaclyn Zuleta RN
[2018-12-16] MEDS: PATCH REMOVAL 1 EA PATCH TD SCH (12:06)
--- NOTE | 2018-12-16 15:38 | HOSPPROG ---
Hospitalist Progress Note Assessment/Plan: DIAGNOSES: * Acute bilateral nondisplaced sacral insufficiency fractures without neurologic symptoms * Fall at home, mechanical * Gait instability, weakness, deconditioning * Parkinson's disease moderately advanced * Osteoporosis with previous fragility fractures * Hypothyroidism Little change in pain from yesterday. I reviewed with her that conservative therapy is are recommended plan at this time but if her symptoms do not improve she could be candidate for injection therapy. However, she has a previous lumbar compression fracture with a retropulsed segment and had been informed at that time that she was not a candidate for kyphoplasty of that fracture due to the possibility of neurologic injury resulting from the injection. Because of this she is not at all interested in injection therapy for her sacral insufficiency fractures even if her pain continues to worsen or not resolve. PLANS: * Continue conservative care * Pain management with nonnarcotic medicines as months possible (will add Lidoderm patch at this time) * Physical occupational therapy * Fall risk precautions * In the outpatient setting she should be seen by a bone metabolism specialist such as an art manager or otherwise for management of her osteoporosis in terms of anti resorptive therapies which she is not on * Continue vitamin-D replacement and calcium supplements * Probable transfer to detention facility tomorrow SUBJECTIVE: Pain unchanged from yesterday No new symptoms, no neurologic symptoms No other new symptoms aside from her fracture OBJECTIVE Vitals reviewed: All stable overall, no fever Exam: alert oriented skin warm dry color ok resps not labored lungs clear BSs heart regular abd soft nondistended nontender, bowel sounds present limbs warm, no edema iv site ok Objective: Vital Signs Temp Pulse Resp BP Pulse Ox 36.7 C 77 16 92/56 L 99 12/16/18 12:00 12/16/18 12:00 12/16/18 07:32 12/16/18 12:00 12/16/18 12:00 12/15/18 12/16/18 12/17/18 06:59 06:59 06:59 Intake Total 350 2200 Output Total 400 1050 Balance -50 1150 ICD10 Worksheet Patient Problems: Problems Problem Status Onset Fall Acute Low back pain Acute Sacral insufficiency fracture Acute Generalized weakness Acute Inadequate pain control Acute
[2018-12-16] MEDS ORDERED: oxyCODONE IR 5 MG TAB PO PRN (15:42)
[2018-12-16] MEDS ORDERED: POLYETHYLENE GLYCOL 3350 17 GM PKT PO PRN (15:49)
[2018-12-16] MEDS ORDERED: MAGNESIUM HYDROXIDE 30 ML UDCUP PO PRN (15:49)
[2018-12-16] MEDS ORDERED: BISACODYL 10 MG SUPP PR PRN (15:49)
[2018-12-16] MEDS ORDERED: LACTULOSE 20 GM/30 ML UDCUP PO PRN (15:49)
[2018-12-16] MEDS: traMADol 50 MG TAB PO SCH (18:06)
[2018-12-16] MEDS: LIDOCAINE 4%/MENTHOL 1% PATCH TD SCH (20:03)
[2018-12-16] MEDS: SENNOSIDES/DOCUSATE SODIUM TAB PO SCH (20:03)
[2018-12-16] MEDS: MELATONIN 3 MG TAB PO SCH (20:03)
[2018-12-17] MEDS: traMADol 50 MG TAB PO SCH ×2 (00:46→05:36)
[2018-12-17] MEDS: LEVOTHYROXINE 25 MCG TAB PO SCH (05:32)
[2018-12-17] MEDS: ACETAMINOPHEN 500 MG TAB PO SCH (05:33)
[2018-12-17 07:59] VITALS: BP 124/65
[2018-12-17] MEDS: CARBIDOPA/LEVODOPA 25 MG/100 MG TAB PO SCH (08:12)
[2018-12-17] MEDS: SENNOSIDES/DOCUSATE SODIUM TAB PO SCH (08:12)
[2018-12-17] MEDS: ENOXAPARIN 40 MG/0.4 ML SYR SC SCH (08:12)
[2018-12-17] MEDS: PATCH REMOVAL 1 EA PATCH TD SCH (08:14)
--- NOTE | 2018-12-17 09:22 | PDIAF ---
- Diagnosis Diagnosis: Sacral insufficiency fx, gait instability, Parkinson's, osteoporosis Code Status: Full Code - Medication Management Discharge Medications: electronically signed and located in the Home Medication List. - Orders Services needed: Registered Nurse, Certified Mutuel Department Manager, Master Punch Hand , Physical Therapy, Occupational Therapy Diet Recommendation: no restrictions on diet Diet Texture: Regular Texture Diet Additional Instructions: Return with increasing pain, weakness, numbness, incontinence or any other concerns. - Follow Up Care Current Providers and Referrals: Patient,NotPresent [Unknown] - As per Instructions
--- NOTE | 2018-12-17 09:25 | PDIAF ---
- Diagnosis Diagnosis: Sacral insufficiency fx, gait instability, Parkinson's, osteoporosis Code Status: Full Code - Medication Management Discharge Medications: electronically signed and located in the Home Medication List. - Orders Services needed: Registered Nurse, Certified Suit Maker, Master Minor League Baseball Player , Physical Therapy, Occupational Therapy Diet Recommendation: no restrictions on diet Diet Texture: Regular Texture Diet Activity/Weight Bearing Restrictions: Weight-bearing as tolerated, very high fall risk and very high fracture risk. Parkinson's and market gait instability Equipment: Walker - Follow Up Care Current Providers and Referrals: Patient,NotPresent [Unknown] - As per Instructions
--- NOTE | 2018-12-17 09:33 | PDDCSUM ---
Discharge Summary Discharge Summary: DISCHARGE DIAGNOSES: * acute bilateral nondisplaced sacral insufficiency fracture * fall at home with injury * markedly impaired gait and high fall risk due to Parkinson's disease and deconditioning/weakness * advanced Parkinson's disease * known osteoporosis * hypothyroidism chronic on replacement PROCEDURES: CT scans of lumbar spine and pelvis demonstrating new nondisplaced bilateral sacral insufficiency fractures HOSPITAL COURSE SUMMARY: This patient with known osteoporosis and advanced Parkinson's disease had a fall at home landing on her buttock. She comes in with tail bone pain and has CT scan evidence of acute bilateral sacral insufficiency fractures that are nondisplaced and without identified neural impingement. She has not had any neurologic symptoms. Here in the hospital her management has been conservative. She does have significant improvement in pain over the last 3 days. She still has pain with movement but no pain at all lying in bed or sitting in the chair at this time. There been no other acute issues or complications at this time. The patient does have known Parkinson's disease and is on appropriate medications for that and follows with a neurologist. Patient has known osteoporosis and it sounds like she is getting injection therapy as anti resorptive medication for that in the outpatient setting At this point she is stable for discharge from the acute care hospital but will need ongoing help with physical therapy with poor balance high fall risk and high fracture risk. She will need nursing care for activities of daily living as well. PENDING TEST RESULTS: None MEDICATION CHANGES: Addition of Lidoderm patch. Addition of Celebrex FOLLOW-UP PLAN: She is transferred at this time to correction facility at [facility] for ongoing physical therapy and occupational therapy rehabilitation Greater than 35 minutes bedside and care coordination time today
[2018-12-17] MEDS: oxyCODONE IR 5 MG TAB PO PRN (10:10)
--- NOTE | 2018-12-17 11:36 | ASMTLACE ---
LACE Length of stay for Answers: 4-6 days current admission Acuity / Level of Answers: Yes Care: Did the patient have an inpatient admission? Comorbidities - select Answers: Opioid dependence all that apply / Chronic pain Other Notes: Parkinson's disease; Hypothyroid # of Emergency department Answers: 1-2 visits in the last 6 months Score: 13 Date Signed: 12/17/2018 11:36 AM Electronically Signed By:JACQUELINE Villagran
--- NOTE | 2018-12-17 11:39 | ASMTCMCOM ---
CM Note CM Note Notes: Pt medically stable for d/c to [facility]. Orders sent in [employer]. MATHIEU Cardenas to call reports. Stretcher transport scheduled by for 1100, copy of PCS in chart. Per pt request her friend Gutierrez is updated. Date Signed: 12/17/2018 11:38 AM Electronically Signed By:JACQUELINE Villagran
--- NOTE | 2018-12-17 11:48 | ASDISCHSUM ---
Discharge Information Plan Status:SNF Medically Cleared to Leave: Discharge Date:12/17/2018 10:56 AM CM D/C Disposition: ADT D/C Disposition:Correction Facility Projected Discharge Date:12/18/2018 11:00 AM Transportation at D/C: Discharge Delay Reason: Follow-Up Date:12/18/2018 11:00 AM Discharge Slot: Final Diagnosis: Placement Information Referral Type:*Retirement/SNF Referral ID:[id number] Provider Name:[facility] Address 1:[address] Address 2: City:[place] Selection Factors: State:[place] Patient Contact Information Contact Name:AMA Relationship:Friend Address:[address] [place] Work Phone: City:[place] Alternate Phone: State/Zip Code:[place] [address] Email: Financial Information Financial Class:Medicare Primary Plan Desc:MEDICARE INPATIENT Primary Plan Number:[id number] Secondary Plan Desc:STATE FARM MEDICARE SUPP Secondary Plan Number:[id number] Assessment Information [facility] CM Progress Note CM Note CM Note Notes: Pt is 83 yo F. Presents with sacral fracture after fall. Has history of parkinsons and hypothyroidism. Therapies ordered, pending eval. CM to follow. Plan: TBD Date Signed: 12/15/2018 03:54 PM Electronically Signed By:ANGELIA Guerra MARYBETH LACVj Length of stay for Answers: 4-6 days current admission Acuity / Level of Answers: Yes Care: Did the patient have an inpatient admission? Comorbidities - select Answers: Opioid dependence all that apply / Chronic pain Other Notes: Parkinson's disease; Hypothyroid # of Emergency department Answers: 1-2 visits in the last 6 months Score: 13 Date Signed: 12/17/2018 11:36 AM Electronically Signed By:JACQUELINE Villagran [facility] CM Progress Note CM Note CM Note Notes: PT/OT recommending SNF, and patient is amenable. Referral sent and accepted by [facility]. Case Management will follow for d/c planning. Current CM Discharge plan: [facility] Date Signed: 12/16/2018 11:27 AM Electronically Signed By:Jaclyn Zuleta RN [facility] CM Progress Note CM Note CM Note Notes: Pt medically stable for d/c to [facility]. Orders sent in [employer]. MATHIEU Cardenas to call reports. Stretcher transport scheduled by for 1100, copy of PCS in chart. Per pt request her friend Gutierrez is updated. Date Signed: 12/17/2018 11:38 AM Electronically Signed By:JACQUELINE Villagran Intervention Information
== END 2018-12-17 10:56 | DRG 552 ==
LOC: EDUNIT# → F3N 21:36
PROVIDERS: ADMIT Internal Medicine; ATTEND Internal Medicine
DX: S32.19XA Other fracture of sacrum, initial encounter for closed fracture (principal); W19.XXXA Unspecified fall, initial encounter; Y92.009 Unspecified place in unspecified non-institutional (private) residence as the place of occurrence of the external cause; G20 Parkinson's disease; E03.9 Hypothyroidism, unspecified; M16.0 Bilateral primary osteoarthritis of hip; D72.829 Elevated white blood cell count, unspecified; M81.0 Age-related osteoporosis without current pathological fracture; R26.9 Unspecified abnormalities of gait and mobility; Z91.81 History of falling
CPT/HCPCS: 96374; 97162-GP; 97166-GO; J1650; J2270